=== PATIENT | female | born 1950 | race Caucasian/White ===

== ENCOUNTER 2018-09-19 19:17 | Inpatient (IN) | payer MEDICAID ==
[~2018-09-19] VITALS: Ht 160 cm; Wt 81.2 kg
[2018-09-19 20:22] LABS: UA SPECIFIC GRAVITY 1.015 (1.005-1.035); microscopic required? YES; urine erythrocyte NEGATIVE (NEGATIVE)
[2018-09-19 20:29] LABS: BASOPHIL % 0.3 % (0-2); RED CELL DISTRIBUTION WIDTH 13.9 % (11.5-14.5)
[2018-09-19 20:33] LABS: CALCIUM 8.7 mg/dL (8.5-10.1); CARBON DIOXIDE 33.1 mmol/L (21-32); CHLORIDE SERUM 98 mmol/L (98-107); CREATININE SERUM 0.7 mg/dL (0.6-1.0); GFR1 > 60 mL/min; GLUCOSE SERUM 68 mg/dL (74-106); POTASSIUM SERUM 3.9 mmol/L (3.5-5.1); SODIUM SERUM 139 mmol/L (136-145)
[2018-09-19 20:38] LABS: ALKALINE PHOSPHATASE 214 U/L (46-116); ALT/SGPT 8 U/L (14-59); AST/SGOT 37 U/L (15-37); BILIRUBIN TOTAL 0.43 mg/dL (0.20-1.00); LIPASE 176 IU/L (73-393); TOTAL PROTEIN, SERUM 8.2 g/dL (6.4-8.2)
[2018-09-19 20:49] LABS: ALBUMIN 2.6 g/dL (3.4-5.0)
[2018-09-19 20:51] LABS: PLATELET COUNT 758 x10^3mcL (130-400)
[2018-09-19] MEDS ORDERED: METFORMIN HYDR500 M1 PO (22:20)
[2018-09-19] MEDS ORDERED: SIMVASTATIN10 M1 (22:20)
[2018-09-19] MEDS ORDERED: NOVOLOG MI10 U/0.11 (22:21)
[2018-09-19 23:50] VITALS: BP 117/73
[2018-09-19 23:53] LABS: MAGNESIUM 1.2 mg/dL (1.8-2.4)
[2018-09-19 23:54] LABS: CHOLESTEROL/HDL RATIO 3.1
[2018-09-19 23:59] VITALS: Ht 160 cm; Wt 81.2 kg
[2018-09-20] VITALS (9 sets, daily range): BP systolic 107–136; BP diastolic 47–64
[2018-09-20] MEDS ORDERED: LISINOPRIL40 MG PO (01:59)
[2018-09-20] MEDS ORDERED: JANUVIA100 M1 PO (02:00)
[2018-09-20 06:44] LABS: CALCIUM 8.3 mg/dL (8.5-10.1); CARBON DIOXIDE 31.2 mmol/L (21-32); CHLORIDE SERUM 100 mmol/L (98-107); CREATININE SERUM 0.6 mg/dL (0.6-1.0); GFR1 > 60 mL/min; GLUCOSE SERUM 82 mg/dL (74-106); MAGNESIUM 1.8 mg/dL (1.8-2.4); PHOSPHOROUS 3.3 mg/dL (2.5-4.9); POTASSIUM SERUM 4.3 mmol/L (3.5-5.1); SODIUM SERUM 134 mmol/L (136-145)
[2018-09-20 09:12] LABS: BASOPHIL % 0.7 % (0-2)
[2018-09-20 10:10] LABS: PLATELET COUNT 553 x10^3mcL (130-400)
[2018-09-20 12:02] LABS: AMPHETAMINE QUAL UR NONE DETECTED (See below)
[2018-09-20 15:44] LABS: SOURCE FLUID PARACENTESIS
[2018-09-20 15:45] LABS: APPEARANCE FLUID HAZY; COLOR FLUID YELLOW
[2018-09-20 15:52] LABS: RBC FLUID 980 /cumm; WBC FLUID 3480 /cumm
[2018-09-20 16:04] LABS: LYMPHOCYTE FLUID 8 %; MONOCYTE FLUID 5 %
[2018-09-21 05:25] VITALS: BP 113/60
[2018-09-21 05:39] LABS: CALCIUM 8.1 mg/dL (8.5-10.1); CARBON DIOXIDE 31.4 mmol/L (21-32); CHLORIDE SERUM 98 mmol/L (98-107); CREATININE SERUM 0.6 mg/dL (0.6-1.0); GFR1 > 60 mL/min; GLUCOSE SERUM 168 mg/dL (74-106); MAGNESIUM 1.6 mg/dL (1.8-2.4); POTASSIUM SERUM 4.4 mmol/L (3.5-5.1); SODIUM SERUM 135 mmol/L (136-145)
[2018-09-21 07:56] VITALS: BP 116/46
[2018-09-21 08:05] LABS: BASOPHIL % 0.1 % (0-2)
[2018-09-21 08:06] LABS: PLATELET COUNT 507 x10^3mcL (130-400)
[2018-09-21] MEDS ORDERED: NORCO1 TA1 PO (11:49)
[2018-09-21 12:02] VITALS: BP 135/66
[2018-09-21 12:49] VITALS: BP 135/66
== END 2018-09-21 15:42 | disposition home or self-care (01) | DRG 281 ==
LOC: ED 19:17 → MU 23:01
PROVIDERS: Emergency Medicine; ADMIT Internal Medicine
PROC: 0W9G3ZZ Drainage of Peritoneal Cavity, Percutaneous Approach (ICD-10-PCS; principal; 2018-09-20)
DX: C25.2 Malignant neoplasm of tail of pancreas (principal); E43 Unspecified severe protein-calorie malnutrition; R18.0 Malignant ascites; E11.65 Type 2 diabetes mellitus with hyperglycemia; C78.7 Secondary malignant neoplasm of liver and intrahepatic bile duct; E83.42 Hypomagnesemia; K86.81 Exocrine pancreatic insufficiency; E87.1 Hypo-osmolality and hyponatremia; I10 Essential (primary) hypertension; D47.3 Essential (hemorrhagic) thrombocythemia; D63.0 Anemia in neoplastic disease; Z68.31 Body mass index [BMI] 31.0-31.9, adult; Z87.891 Personal history of nicotine dependence; Z79.4 Long term (current) use of insulin; Z79.84 Long term (current) use of oral hypoglycemic drugs
CPT/HCPCS: 49083; 82962; 87116; 87206; 88344; J1940; J2270; J2405; J3475; J7030; J7040; Q0092; Q9967